=== PATIENT | female | born 1990 | race Caucasian/White ===

== ENCOUNTER 2017-02-17 16:07 | Inpatient (IN) | payer OTHER ==
[2017-02-17] MEDS ORDERED: Nalbuphine 20 MG/1 ML Amp IVPUSH PRN (16:50)
[2017-02-17] MEDS ORDERED: Acetaminophen 325 MG Tab PO PRN ×2 (16:50→23:25)
[2017-02-17] MEDS ORDERED: Sodium Chloride 0.9% 10 ML Syringe FLUSH PRN (16:50)
[2017-02-17] MEDS ORDERED: Ondansetron 4 MG/2 ML SDV IVPUSH PRN (16:50)
[2017-02-17] MEDS ORDERED: Lactated Ringers 1,000 ML IV SCH (17:00)
[2017-02-17] MEDS ORDERED: Oxytocin/Lactated Ringers 10 UNIT/1,000 ML BAG IV SCH ×2 (17:00→22:23)
--- NOTE | 2017-02-17 17:01 | PCM.LDHP ---
L&D History of Present Illness - General Date of Service: 02/17/17 Admit Problem/Dx: Patient Status Order with Admit Dx/Problem 02/17/17 16:50 Patient Status [ADT] Routine Admission Diagnosis/Problem Admission Diagnosis/Problem Normal labor Source of Information: Patient History Limitations: Reports: No Limitations - History of Present Illness Introduction:: Patient is a 26 y/o at 39 4/7 wks presents in labor. Was seen in clinic earlier today and was 5-6 cm dilated. At that time contractions every 10 minutes or so. Now feeling them every 3-5. Otherwise doing well. No other concerns. - Related Data Allergies/Adverse Reactions: Allergies Allergy/AdvReac Type Severity Reaction Status Date / Time No Known Allergies Allergy Verified 04/25/14 16:27 Home Medications: Home Meds Ferrous Sulfate [Slow Fe] 1 tab PO DAILY 04/25/14 [History] Pnv with Ca,No.71/Iron/Fa [ Vitamin Tablet] 1 each PO 04/25/14 [History] Acetaminophen/oxyCODONE [Percocet 325-5 MG] 1 - 2 tab PO Q4H PRN #20 tablet [Rx] Ibuprofen [Motrin] 600 mg PO Q6H PRN #20 tablet 04/28/14 [Rx] Past Medical History GRE T[employer]OR History: Reports: : 2 Para: 1 LMP (Approximate): Psychiatric History: Reports: Depression - Past Surgical History HEENT Surgical History: Reports: Adenoidectomy, Tonsillectomy Female Surgical History: Reports: Section Social & Family History - Tobacco Use Smoking Status *Q: Never Smoker Second Hand Smoke Exposure: No - Alcohol Use Alcohol Use History: No - Recreational Drug Use Recreational Drug Use: No H&P Review of Systems - Review of Systems: Review Of Systems: See Below General: Reports: No Symptoms Pulmonary: Reports: No Symptoms Cardiovascular: Reports: No Symptoms Gastrointestinal: Reports: No Symptoms Genitourinary: Reports: No Symptoms Musculoskeletal: Reports: No Symptoms Psychiatric: Reports: No Symptoms L&D Exam - Exam Exam: See Below - Vital Signs Weight: 100.698 kg - OB Specific Contraction Intensity: Moderate Movement: Active Heart Tones: Present Heart Tones per Min: 130 Heart Rate (FHR) Variability: Moderate (6-25 bmp) Presentation: Vertex - Rodríguez Score Rodríguez Score Cervix Position: Midposition Rodríguez Score Consistency: Soft Rodríguez Score Effacement: >80% Rodríguez Score Dilation: > 5 cm Rodríguez Score 's Station: -1 ,0 Rodríguez Score Total: 11 - Exam General: Alert, Oriented, Cooperative Lungs: Clear to Auscultation, Normal Respiratory Effort Cardiovascular: Regular Rate, Regular Rhythm Abdomen: Soft Genitourinary: Normal external exam Extremities: Normal Inspection Skin: Warm, Dry, Intact - Problem List (1) 39 weeks gestation of SNOMED Code(s): 53215562 ICD Code: Z3A.39 - 39 WEEKS GESTATION OF Status: Acute Current Visit: Yes (2) History of SNOMED Code(s): 249989085 ICD Code: Z98.891 - HISTORY OF UTERINE SCAR FROM PREVIOUS SURGERY Status: Acute Current Visit: Yes (3) Desires (vaginal after ) trial SNOMED Code(s): 851456401, 602932764 ICD Code: O34.219 - MATERNAL CARE FOR UNSP TYPE SCAR FROM PREVIOUS DEL Status: Acute Current Visit: Yes (4) Normal labor SNOMED Code(s): 29916999 ICD Code: O80 - ENCOUNTER FOR FULL-TERM UNCOMPLICATED DELIVERY; Z37.9 - OUTCOME OF DELIVERY, UNSPECIFIED Status: Acute Current Visit: Yes Problem List Initiated/Reviewed/Updated: Yes Orders Last 24hrs: Active Orders 24 hr Category Date Time Status Patient Status [ADT] Routine ADT 02/17/17 16:50 Active Activity as Tolerated [RC] PFP Care 02/17/17 16:50 Active Communication Order [RC] ASDIRECTED Care 02/17/17 16:50 Active Heart Tones [RC] ASDIRECTED Care 02/17/17 16:51 Active Notify Provider [RC] PFP Care 02/17/17 16:50 Active Notify Provider [RC] PRN Care 02/17/17 16:50 Active Peripheral IV Care [RC] . DIRECTED Care 02/17/17 16:51 Active Vital Signs [RC] PER UNIT ROUTINE Care 02/17/17 16:50 Active CBC W/O DIFF,HEMOGRAM [HEME] Routine Lab 02/17/17 16:50 Ordered TYPE AND SCREEN [BBK] Routine Lab 02/17/17 16:50 Ordered Acetaminophen [Tylenol] Med 02/17/17 16:50 Ordered 650 mg PO Q4H PRN Lactated Ringers [Ringers, Lactated] 1,000 ml Med 02/17/17 17:00 Ordered IV ASDIRECTED Nalbuphine [Nubain] Med 02/17/17 16:50 Ordered 10 mg IVPUSH Q2H PRN Ondansetron [Zofran] Med 02/17/17 16:50 Ordered 4 mg IVPUSH Q4H PRN Oxytocin/Lactated Ringers [Pitocin in LR 10 Units/1,000 Med 02/17/17 17:00 Ordered ML] 10 unit in 1,000 ml IV TITRATE Sodium Chloride 0.9% [Saline Flush] Med 02/17/17 16:50 Ordered 10 ml FLUSH ASDIRECTED PRN Electronic Heart Tones Ext w TOCO [WOMSER] Oth 02/17/17 16:50 Ordered Routine Electronic Heart Tones Internal [WOMSER] Per Unit Oth 02/17/17 16:50 Ordered Routine Peripheral IV Insertion Adult [OM.PC] Routine Oth 02/17/17 16:50 Ordered Resuscitation Status Routine Resus Stat 02/17/17 16:50 Ordered Medication Orders Acetaminophen (Tylenol) 650 mg PO Q4H PRN PRN Reason: Pain (Mild 1-3) and fever Lactated Ringer's (Ringers, Lactated) 1,000 mls @ 40 mls/hr IV ASDIRECTED [facility] Oxytocin/Lactated Ringer's (Pitocin In Lr 10 Units/1,000 Ml) 10 unit in 1,000 mls @ 500 mls/hr IV TITRATE [facility] PRN Reason: Protocol Nalbuphine HCl (Nubain) 10 mg IVPUSH Q2H PRN PRN Reason: Pain (moderate 4-6) Ondansetron HCl (Zofran) 4 mg IVPUSH Q4H PRN PRN Reason: Nausea/Vomiting Sodium Chloride (Saline Flush) 10 ml FLUSH ASDIRECTED PRN PRN Reason: Keep Vein Open Assessment/Plan Comment:: 26 y/o at 39 4/7 wks presents in labor - history of for NRFS/ desires * CBC and T&S * GBS negative, no need for antibiotics * Re-reviewed risks of , consent signed * Pain management per patient preference * Anticipate Cece Amin MD
--- NOTE | 2017-02-17 19:00 | PCM.PNLD ---
Labor Progress Note - VS & Meds Vital Signs: Last Vital Signs Temp 37.3 C 02/17/17 16:50 Pulse 93 02/17/17 16:50 Resp 18 02/17/17 16:50 BP 116/80 02/17/17 16:50 Pulse Ox Active Medications: Current Medications Acetaminophen (Tylenol) 650 mg PO Q4H PRN PRN Reason: Pain (Mild 1-3) and fever Lactated Ringer's (Ringers, Lactated) 1,000 mls @ 40 mls/hr IV ASDIRECTED [facility] Oxytocin/Lactated Ringer's (Pitocin In Lr 10 Units/1,000 Ml) 10 unit in 1,000 mls @ 500 mls/hr IV TITRATE [facility] PRN Reason: Protocol Nalbuphine HCl (Nubain) 10 mg IVPUSH Q2H PRN PRN Reason: Pain (moderate 4-6) Ondansetron HCl (Zofran) 4 mg IVPUSH Q4H PRN PRN Reason: Nausea/Vomiting Sodium Chloride (Saline Flush) 10 ml FLUSH ASDIRECTED PRN PRN Reason: Keep Vein Open - Uterine Contractions Uterine Monitoring Mode: External [place] Contraction Intensity: Moderate - Monitoring Monitor Mode: External Ultrasound Heart Rate (FHR) Baseline: 130 Heart Rate (FHR) Variability: Moderate (6-25 bmp) Accelerations: Present, 15x15 Decelerations: None Strip Review: Category I - Vaginal Exam Dilation (cm): 7 Effacement (Percent): 90 Station: 1 Cervical Position: Anterior - Labor Progress (Free Text) Labor Progress: Doing well. Desires epidural. Will likely AROM following
[2017-02-17] MEDS ORDERED: diphenhydrAMINE 50 MG/ML SDV IVPUSH PRN (19:13)
[2017-02-17] MEDS ORDERED: ePHEDrine 50 MG/ML SDV IVPUSH PRN (19:13)
[2017-02-17] MEDS ORDERED: fentaNYL 100 MCG/2 ML SDV EPIDUR PRN (19:13)
[2017-02-17] MEDS ORDERED: Bupivacaine/fentaNYL/NS 100 ML Bag EPIDUR SCH (19:15)
--- NOTE | 2017-02-17 19:48 | PCM.PREANE ---
Preanesthetic Assessment - Anesthesia/Transfusion/Family Hx Anesthesia History: Prior Anesthesia Without Reaction Family History of Anesthesia Reaction: No Transfusion History: No Prior Transfusion(s) - Review of Systems General: No Symptoms Pulmonary: No Symptoms Cardiovascular: No Symptoms Gastrointestinal: No symptoms Neurological: No Symptoms Other: Reports: None - Physical Assessment Pulse: 93 O2 Sat by Pulse Oximetry: 97 Respiratory Rate: 18 Blood Pressure: 116/80 Temperature: 37.3 C Vital Signs: Last Vital Signs Temp 37.3 C 02/17/17 16:50 Pulse 93 02/17/17 16:50 Resp 18 02/17/17 16:50 BP 116/80 02/17/17 16:50 Pulse Ox Height: 1.8 m Weight: 100.698 kg ASA Class: 2 Mental Status: Alert & Oriented x3 Airway Class: Mallampati = 1 Dentition: Reports: Normal Dentition ROM/Head Extension: Full Lungs: Clear to auscultation, Normal respiratory effort Cardiovascular: Regular Rate, Regular Rhythm, No Murmurs - Lab Values: Laboratory Last Values WBC 12.91 K/mm3 (3.98-10.04) H 02/17/17 17:05 RBC 4.16 M/mm3 (3.98-5.22) 02/17/17 17:05 Hgb 11.3 gm/L (11.2-15.7) 02/17/17 17:05 Hct 33.3 % (34.1-44.9) L 02/17/17 17:05 MCV 80.0 fl (79.4-94.8) 02/17/17 17:05 MCH 27.2 pg (25.6-32.2) 02/17/17 17:05 MCHC 33.9 g/dl (32.2-35.5) 02/17/17 17:05 RDW Std Deviation 42.9 fL (36.4-46.3) 02/17/17 17:05 Plt Count 341 K/mm3 (182-369) 02/17/17 17:05 MPV 9.8 fl (9.4-12.3) 02/17/17 17:05 Blood Type A POSITIVE 02/17/17 17:05 Gel Antibody Screen Negative 02/17/17 17:05 - Allergies Allergies/Adverse Reactions: Allergies Allergy/AdvReac Type Severity Reaction Status Date / Time Penicillins Allergy Rash Verified 02/17/17 17:26 - Acknowledgements Anesthesia Type Planned: Epidural Pt an Appropriate Candidate for the Planned Anesthesia: Yes Alternatives and Risks of Anesthesia Discussed w Pt/Guardian: Yes Pt/Guardian Understands and Agrees with Anesthesia Plan: Yes PreAnesthesia Questionnaire 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: Neurological History: Reports: Migraines Psychiatric History: Reports: Depression - Past Surgical History HEENT Surgical History: Reports: Adenoidectomy, Tonsillectomy Female Surgical History: Reports: Section - SUBSTANCE USE Smoking Status *Q: Never Smoker Second Hand Smoke Exposure: No Recreational Drug Use History: No - HOME MEDS Home Medications: Home Meds Pnv with Ca,No.71/Iron/Fa [ Vitamin Tablet] 1 each PO DAILY 04/25/14 [ History] - CURRENT (IN HOUSE) MEDS Current Meds: Current Medications Acetaminophen (Tylenol) 650 mg PO Q4H PRN PRN Reason: Pain (Mild 1-3) and fever Diphenhydramine HCl (Benadryl) 25 mg IVPUSH Q6H PRN PRN Reason: Itching Ephedrine Sulfate (Ephedrine Sulfate) 5 mg IVPUSH ASDIRECTED PRN PRN Reason: HYPOTENTSION Fentanyl (Sublimaze) 100 mcg EPIDUR Q3H PRN PRN Reason: PAIN Last Admin: 02/17/17 19:39 Dose: 100 mcg Fentanyl/Bupivacaine HCl (Fentanyl/Bupivacaine/Ns 2 Mcg-0.125% 100 Ml) 100 ml EPIDUR ASDIRECTED [facility] Last Admin: 02/17/17 19:40 Dose: 100 ml Lactated Ringer's (Ringers, Lactated) 1,000 mls @ 40 mls/hr IV ASDIRECTED [facility] Last Admin: 02/17/17 19:02 Dose: 999 mls/hr Oxytocin/Lactated Ringer's (Pitocin In Lr 10 Units/1,000 Ml) 10 unit in 1,000 mls @ 500 mls/hr IV TITRATE [facility] PRN Reason: Protocol Nalbuphine HCl (Nubain) 10 mg IVPUSH Q2H PRN PRN Reason: Pain (moderate 4-6) Ondansetron HCl (Zofran) 4 mg IVPUSH Q4H PRN PRN Reason: Nausea/Vomiting Sodium Chloride (Saline Flush) 10 ml FLUSH ASDIRECTED PRN PRN Reason: Keep Vein Open
--- NOTE | 2017-02-17 19:52 | PCM.PNLD ---
Labor Progress Note - VS & Meds Vital Signs: Last Vital Signs Temp 37.3 C 02/17/17 19:48 Pulse 93 02/17/17 19:48 Resp 18 02/17/17 19:48 BP 116/80 02/17/17 19:48 Pulse Ox 97 02/17/17 19:48 Active Medications: Current Medications Acetaminophen (Tylenol) 650 mg PO Q4H PRN PRN Reason: Pain (Mild 1-3) and fever Diphenhydramine HCl (Benadryl) 25 mg IVPUSH Q6H PRN PRN Reason: Itching Ephedrine Sulfate (Ephedrine Sulfate) 5 mg IVPUSH ASDIRECTED PRN PRN Reason: HYPOTENTSION Fentanyl (Sublimaze) 100 mcg EPIDUR Q3H PRN PRN Reason: PAIN Last Admin: 02/17/17 19:39 Dose: 100 mcg Fentanyl/Bupivacaine HCl (Fentanyl/Bupivacaine/Ns 2 Mcg-0.125% 100 Ml) 100 ml EPIDUR ASDIRECTED [facility] Last Admin: 02/17/17 19:40 Dose: 100 ml Lactated Ringer's (Ringers, Lactated) 1,000 mls @ 40 mls/hr IV ASDIRECTED [facility] Last Admin: 02/17/17 19:02 Dose: 999 mls/hr Oxytocin/Lactated Ringer's (Pitocin In Lr 10 Units/1,000 Ml) 10 unit in 1,000 mls @ 500 mls/hr IV TITRATE [facility] PRN Reason: Protocol Nalbuphine HCl (Nubain) 10 mg IVPUSH Q2H PRN PRN Reason: Pain (moderate 4-6) Ondansetron HCl (Zofran) 4 mg IVPUSH Q4H PRN PRN Reason: Nausea/Vomiting Sodium Chloride (Saline Flush) 10 ml FLUSH ASDIRECTED PRN PRN Reason: Keep Vein Open - Uterine Contractions Uterine Monitoring Mode: External [place] Contraction Intensity: Moderate - Monitoring Monitor Mode: External Ultrasound Heart Rate (FHR) Baseline: 130 Heart Rate (FHR) Variability: Moderate (6-25 bmp) Accelerations: Present, 15x15 Decelerations: None Strip Review: Category I - Vaginal Exam Dilation (cm): 8-9 Effacement (Percent): 90 Station: 1 Cervical Position: Anterior - Labor Progress (Free Text) Labor Progress: Doing well. Just got her epidural. AROM done with release of scant amounts of blood tinged fluid. Continue present management
[2017-02-17] MEDS ORDERED: Bupivacaine 0.25% 10 ML SDV ONE (22:22)
--- NOTE | 2017-02-17 22:48 | PCM.DEL ---
L & D Note - General Info Date of Service: 02/17/17 - Delivery Note Labor: spontaneous Delivery Outcome: Livebirth Delivery Method: Spontaneous Vaginal Delivery Presentation: Right Occiput Anterior (JEWELL) Nuchal Cord: Present, Reduced Anesthesia Type: Epidural Amniotic Fluid Description: Meconium stained Episiotomy Type: None Laceration: 2nd degree, perineal Suture type: vicryl Suture size: 2-0 Placenta: intact, spontaneous Cord: 3 vessels Estimated Blood Loss: 250 Resuscitation Needed: Yes [place]: Suctioned, Bulb Syringe, Stimulated, Warmed, [place] Used Provider: Michael Rose Score 1 min: 8 Score 5 min: 9 Delivery Comments (Free Text/Narrative):: Patient found to be complete and began pushing. With maternal pushing effort head delivered from an JEWELL presentation. With gentle downward traction the shoulder and body delivered. Nuchal and body cord present and reduced. Cord clamped and cut. Baby handed to awaiting production hardener due to meconium staining. Cord blood obtained. Placenta allowed time to separate and spontaneously expelled. Inspection of the perineum showed a 2nd degree laceration which was repaired with a 2-0 vicryl in the typical fashion - Patient Data Vitals - most recent: Last Vital Signs Temp 37.3 C 02/17/17 19:48 Pulse 93 02/17/17 19:48 Resp 18 02/17/17 19:48 BP 116/80 02/17/17 19:48 Pulse Ox 97 02/17/17 19:48 Weight - most recent: 100.698 kg Lab Results last 24 hrs: Laboratory Results - last 24 hr 02/17/17 02/17/17 Range/Units 17:05 17:05 WBC 12.91 H (3.98-10.04) K/mm3 RBC 4.16 (3.98-5.22) M/mm3 Hgb 11.3 (11.2-15.7) gm/L Hct 33.3 L (34.1-44.9) % MCV 80.0 (79.4-94.8) fl MCH 27.2 (25.6-32.2) pg MCHC 33.9 (32.2-35.5) g/dl RDW Std Deviation 42.9 (36.4-46.3) fL Plt Count 341 (182-369) K/mm3 MPV 9.8 (9.4-12.3) fl Blood Type A POSITIVE Gel Antibody Screen Negative Med Orders - Current: Current Medications Acetaminophen (Tylenol) 650 mg PO Q4H PRN PRN Reason: Pain (Mild 1-3) and fever Diphenhydramine HCl (Benadryl) 25 mg IVPUSH Q6H PRN PRN Reason: Itching Ephedrine Sulfate (Ephedrine Sulfate) 5 mg IVPUSH ASDIRECTED PRN PRN Reason: HYPOTENTSION Fentanyl (Sublimaze) 100 mcg EPIDUR Q3H PRN PRN Reason: PAIN Last Admin: 02/17/17 19:39 Dose: 100 mcg Fentanyl/Bupivacaine HCl (Fentanyl/Bupivacaine/Ns 2 Mcg-0.125% 100 Ml) 100 ml EPIDUR ASDIRECTED [facility] Last Admin: 02/17/17 19:40 Dose: 100 ml Lactated Ringer's (Ringers, Lactated) 1,000 mls @ 40 mls/hr IV ASDIRECTED [facility] Last Admin: 02/17/17 19:02 Dose: 999 mls/hr Oxytocin/Lactated Ringer's (Pitocin In Lr 10 Units/1,000 Ml) 10 unit in 1,000 mls @ 500 mls/hr IV TITRATE [facility] PRN Reason: Protocol Nalbuphine HCl (Nubain) 10 mg IVPUSH Q2H PRN PRN Reason: Pain (moderate 4-6) Ondansetron HCl (Zofran) 4 mg IVPUSH Q4H PRN PRN Reason: Nausea/Vomiting Last Admin: 02/17/17 20:18 Dose: 4 mg Sodium Chloride (Saline Flush) 10 ml FLUSH ASDIRECTED PRN PRN Reason: Keep Vein Open - Problem List & Annotations (1) 39 weeks gestation of SNOMED Code(s): 76302483 Code(s): Z3A.39 - 39 WEEKS GESTATION OF Status: Acute Current Visit: Yes (2) History of SNOMED Code(s): 474504928 Code(s): Z98.891 - HISTORY OF UTERINE SCAR FROM PREVIOUS SURGERY Status: Acute Current Visit: Yes (3) Desires (vaginal after ) trial SNOMED Code(s): 242541609, 728658820 Code(s): O34.219 - MATERNAL CARE FOR UNSP TYPE SCAR FROM PREVIOUS DEL Status: Acute Current Visit: Yes (4) Normal labor SNOMED Code(s): 97842813 Code(s): O80 - ENCOUNTER FOR FULL-TERM UNCOMPLICATED DELIVERY; Z37.9 - OUTCOME OF DELIVERY, UNSPECIFIED Status: Acute Current Visit: Yes (5) , delivered, current hospitalization SNOMED Code(s): 518221681 Code(s): O34.219 - MATERNAL CARE FOR UNSP TYPE SCAR FROM PREVIOUS DEL Status: Acute Current Visit: Yes - Problem List Review Problem List Initiated/Reviewed/Updated: Yes - My Orders Last 24 Hours: My Active Orders 02/17/17 16:50 Patient Status [ADT] Routine Activity as Tolerated [RC] PFP Communication Order [RC] ASDIRECTED Notify Provider [RC] PFP Notify Provider [RC] PRN Vital Signs [RC] PER UNIT ROUTINE Acetaminophen [Tylenol] 650 mg PO Q4H PRN Nalbuphine [Nubain] 10 mg IVPUSH Q2H PRN Ondansetron [Zofran] 4 mg IVPUSH Q4H PRN Sodium Chloride 0.9% [Saline Flush] 10 ml FLUSH ASDIRECTED PRN Electronic Heart Tones Ext w TOCO [WOMSER] Routine Electronic Heart Tones Internal [WOMSER] Per Unit Routine Peripheral IV Insertion Adult [OM.PC] Routine Resuscitation Status Routine 02/17/17 16:51 Heart Tones [RC] ASDIRECTED Peripheral IV Care [RC] . DIRECTED 02/17/17 17:00 Lactated Ringers [Ringers, Lactated] 1,000 ml IV ASDIRECTED Oxytocin/Lactated Ringers [Pitocin in LR 10 Units/1,000 ML] 10 unit in 1,000 ml IV TITRATE 02/17/17 22:39 Patient Status Manage Transfer [TRANSFER] Routine - Assessment Assessment:: 26 y/o G2 now P2002 PPD#0 from at 39 4/7 wks - Plan Plan:: * Routine cares * Encourage breast feeding * Discharge home in 1-2 days Cece Amin MD
[2017-02-17] MEDS ORDERED: Lanolin 100% Cream 7 GM Tube TOP PRN (23:25)
[2017-02-17] MEDS ORDERED: Benzocaine/Menthol 20%-0.5% Spray 56 GM Canister TOP PRN (23:25)
[2017-02-17] MEDS ORDERED: Docusate Sodium 100 MG Cap PO PRN (23:25)
[2017-02-17] MEDS ORDERED: Witch Hazel Medicated Pads 100/Jar TOP PRN (23:25)
[2017-02-18] MEDS: Ibuprofen 600 MG Tab PO PRN ×3 (01:31→18:14)
--- NOTE | 2017-02-18 07:03 | PCM.PNPP ---
- General Info Date of Service: 02/18/17 Functional Status: Reports: pain controlled, tolerating diet, ambulating, urinating - Review of Systems General: Reports: No Symptoms Pulmonary: Reports: no symptoms Cardiovascular: Reports: No Symptoms Gastrointestinal: Reports: No symptoms Genitourinary: Reports: other (some perineal pain) Musculoskeletal: Reports: no symptoms - Patient Data Vital Signs - most recent: Last Vital Signs Temp 37.3 C 02/18/17 04:06 Pulse 65 02/18/17 04:06 Resp 13 02/18/17 04:06 BP 94/53 L 02/18/17 04:06 Pulse Ox 99 02/18/17 04:06 Weight - most recent: 100.698 kg I&O - last 24 hours: Intake & Output 02/17/17 02/18/17 02/18/17 22:59 06:59 14:59 Intake Total 1999 Balance 1999 Lab Results - last 24 hrs: Laboratory Results - last 24 hr 02/17/17 02/17/17 Range/Units 17:05 17:05 WBC 12.91 H (3.98-10.04) K/mm3 RBC 4.16 (3.98-5.22) M/mm3 Hgb 11.3 (11.2-15.7) gm/L Hct 33.3 L (34.1-44.9) % MCV 80.0 (79.4-94.8) fl MCH 27.2 (25.6-32.2) pg MCHC 33.9 (32.2-35.5) g/dl RDW Std Deviation 42.9 (36.4-46.3) fL Plt Count 341 (182-369) K/mm3 MPV 9.8 (9.4-12.3) fl Blood Type A POSITIVE Gel Antibody Screen Negative Med Orders - Current: Current Medications Acetaminophen (Tylenol) 650 mg PO Q4H PRN PRN Reason: mild pain or fever Benzocaine/Menthol (Dermoplast Pain Relief [place]) 0 gm TOP ASDIRECTED PRN PRN Reason: Perineal Comfort Measure Last Admin: 02/18/17 01:31 Dose: 1 case Docusate Sodium (Colace) 100 mg PO BID PRN PRN Reason: Constipation Emollient Ointment (Lansinoh Hpa) 0 gm TOP ASDIRECTED PRN PRN Reason: Sore Nipples Last Admin: 02/18/17 01:32 Dose: 1 tube Oxytocin/Lactated Ringer's (Pitocin In Lr 10 Units/1,000 Ml) 10 unit in 1,000 mls @ 500 mls/hr IV TITRATE [facility] PRN Reason: Protocol Last Admin: 02/17/17 22:25 Dose: 500 mls/hr, 500 mls/hr Ibuprofen (Motrin) 600 mg PO Q6H PRN PRN Reason: Mild pain or fever Last Admin: 02/18/17 01:31 Dose: 600 mg Witch Amira (Tucks) 1 pad TOP ASDIRECTED PRN PRN Reason: Hemorrhoid pain Last Admin: 02/18/17 01:32 Dose: 1 cartridge Discontinued Medications Acetaminophen (Tylenol) 650 mg PO Q4H PRN PRN Reason: Pain (Mild 1-3) and fever Diphenhydramine HCl (Benadryl) 25 mg IVPUSH Q6H PRN PRN Reason: Itching Ephedrine Sulfate (Ephedrine Sulfate) 5 mg IVPUSH ASDIRECTED PRN PRN Reason: HYPOTENTSION Fentanyl (Sublimaze) 100 mcg EPIDUR Q3H PRN PRN Reason: PAIN Last Admin: 02/17/17 19:39 Dose: 100 mcg Fentanyl/Bupivacaine HCl (Fentanyl/Bupivacaine/Ns 2 Mcg-0.125% 100 Ml) 100 ml EPIDUR ASDIRECTED [facility] Last Admin: 02/17/17 19:40 Dose: 100 ml Lactated Ringer's (Ringers, Lactated) 1,000 mls @ 40 mls/hr IV ASDIRECTED [facility] Last Admin: 02/17/17 19:02 Dose: 999 mls/hr Oxytocin/Lactated Ringer's (Pitocin In Lr 10 Units/1,000 Ml) 10 unit in 1,000 mls @ 500 mls/hr IV TITRATE [facility] PRN Reason: Protocol Nalbuphine HCl (Nubain) 10 mg IVPUSH Q2H PRN PRN Reason: Pain (moderate 4-6) Ondansetron HCl (Zofran) 4 mg IVPUSH Q4H PRN PRN Reason: Nausea/Vomiting Last Admin: 02/17/17 20:18 Dose: 4 mg Sodium Chloride (Saline Flush) 10 ml FLUSH ASDIRECTED PRN PRN Reason: Keep Vein Open - Infant Interaction Disposition, : in Room with Family Feeding: Attempted ; Nursed Fair/Poor Support Person: - Recovery Exam Fundal Tone: Firm Fundal Level: 2 Fingerbreadths Below Umbilicus Fundal Placement: Midline Lochia Amount: Scant, Small Lochia Color: Rubra/Red Perineum Description: Edematous Episiotomy/Laceration: Approximated Urinary Elimination: Voided - Exam General: alert, oriented, cooperative Abdomen: soft, no tenderness Extremities: edema Skin: warm, dry, intact - Problem List & Annotations (1) 39 weeks gestation of SNOMED Code(s): 47372461 Code(s): Z3A.39 - 39 WEEKS GESTATION OF Status: Acute Current Visit: Yes (2) History of SNOMED Code(s): 965129213 Code(s): Z98.891 - HISTORY OF UTERINE SCAR FROM PREVIOUS SURGERY Status: Acute Current Visit: Yes (3) Desires (vaginal after ) trial SNOMED Code(s): 460581398, 700080021 Code(s): O34.219 - MATERNAL CARE FOR UNSP TYPE SCAR FROM PREVIOUS DEL Status: Acute Current Visit: Yes (4) Normal labor SNOMED Code(s): 11206617 Code(s): O80 - ENCOUNTER FOR FULL-TERM UNCOMPLICATED DELIVERY; Z37.9 - OUTCOME OF DELIVERY, UNSPECIFIED Status: Acute Current Visit: Yes (5) , delivered, current hospitalization SNOMED Code(s): 519461347 Code(s): O34.219 - MATERNAL CARE FOR UNSP TYPE SCAR FROM PREVIOUS DEL Status: Acute Current Visit: Yes - Problem List Review Problem List Initiated/Reviewed/Updated: Yes - My Orders Last 24 Hours: My Active Orders 02/17/17 16:50 Resuscitation Status Routine 02/17/17 16:51 Heart Tones [RC] ASDIRECTED 02/17/17 22:23 Oxytocin/Lactated Ringers [Pitocin in LR 10 Units/1,000 ML] 10 unit in 1,000 ml IV TITRATE 02/17/17 23:25 Activity as Tolerated [RC] PER UNIT ROUTINE Vital Signs [RC] 04,12,20 Acetaminophen [Tylenol] 650 mg PO Q4H PRN Benzocaine/Menthol [Dermoplast Pain Relief [place]] See Dose Instructions TOP ASDIRECTED PRN Docusate Sodium [Colace] 100 mg PO BID PRN Ibuprofen [Motrin] 600 mg PO Q6H PRN Lanolin [Lansinoh HPA] See Dose Instructions TOP ASDIRECTED PRN Witch Amira [Tucks] 1 pad TOP ASDIRECTED PRN Assess Lochia [WOMSER] Per Unit Routine Assess Uterine Involution [WOMSER] Per Unit Routine Breast Pump [WOMSER] Per Unit Routine Heat Therapy [OM.PC] PRN Ice Therapy [OM.PC] Per Unit Routine Perineal Care [OM.PC] Per Unit Routine Peripheral IV Discontinue [OM.PC] Routine Sitz Bath [OM.PC] Per Unit Routine 02/17/17 Dinner Regular Diet [DIET] 02/18/17 23:25 Heat Therapy [OM.PC] PRN - Assessment Assessment:: 26 y/o G2 now P2002 PPD#1 from at 39 4/7 wks - Plan Plan:: * Routine cares * Encourage breast feeding * Discharge home tomorrow Cece Amin MD
--- NOTE | 2017-02-18 08:37 | PCM48HPAN ---
Post Anesthesia Note - EVALUATION WITHIN 48HRS OF ANESTHETIC Vital Signs in Normal Range: Yes Patient Participated in Evaluation: Yes Respiratory Function Stable: Yes Airway Patent: Yes Cardiovascular Function Stable: Yes Hydration Status Stable: Yes Pain Control Satisfactory: Yes Nausea and Vomiting Control Satisfactory: Yes Mental Status Recovered: Yes - COMMENTS/OBSERVATIONS Free Text/Narrative:: Pt reports she and baby doing very well. Pt reports return of full LE strength, has a bit of numbnessin skin of left hip, otherwise completely resolved. I counseled her that this too will likely return over the next few days, but that occasionally there might be an area of persistent numbness. Pt stated, "I'm not bothered by it." up to restroom without difficulty, no fever, chills, nausea, or vomiting. no soreness at site.
[2017-02-19 04:07] VITALS: BP 106/62
--- NOTE | 2017-02-19 07:05 | PCM.DCSUM1 ---
Discharge Summary - Discharge Data Discharge Date: 02/19/17 Discharge Disposition: Home, Self-Care 01 Condition: Good - Discharge Diagnosis/Problem(s) (1) 39 weeks gestation of SNOMED Code(s): 46033369 ICD Code: Z3A.39 - 39 WEEKS GESTATION OF Status: Acute Current Visit: Yes (2) History of SNOMED Code(s): 936270429 ICD Code: Z98.891 - HISTORY OF UTERINE SCAR FROM PREVIOUS SURGERY Status: Acute Current Visit: Yes (3) Desires (vaginal after ) trial SNOMED Code(s): 113500481, 235385165 ICD Code: O34.219 - MATERNAL CARE FOR UNSP TYPE SCAR FROM PREVIOUS DEL Status: Acute Current Visit: Yes (4) Normal labor SNOMED Code(s): 98616154 ICD Code: O80 - ENCOUNTER FOR FULL-TERM UNCOMPLICATED DELIVERY; Z37.9 - OUTCOME OF DELIVERY, UNSPECIFIED Status: Acute Current Visit: Yes (5) , delivered, current hospitalization SNOMED Code(s): 711834640 ICD Code: O34.219 - MATERNAL CARE FOR UNSP TYPE SCAR FROM PREVIOUS DEL Status: Acute Current Visit: Yes - Patient Summary/Data Complications: None Recommended Follow-up Testing/Procedures: Follow up in 5-6 weeks for check Hospital Course: Patient is a 26 y/o at 39 4/7 wks who presented in labor/desire for . She did well without the need for augmentation and underwent an uncomplicated . See delivery note. she did well and was discharged home on PPD#2 - Patient Instructions Diet: Regular Diet as Tolerated Activity: As Tolerated Activity, Other: Pelvic rest for 6 weeks Driving: May Drive Today Showering/Bathing: May Shower Showering/Bathing, Other: May bathe Notify Provider of: Fever, Increased Pain, Swelling and Redness, Drainage, Nausea and/or Vomiting - Discharge Plan Home Medications: Home Meds Pnv with Ca,No.71/Iron/Fa [ Vitamin Tablet] 1 each PO DAILY 04/25/14 [ History] Docusate Sodium [Colace] 100 mg PO BID PRN #0 cap 02/18/17 [Rx] Ibuprofen [IJD: Ibuprofen] 600 mg PO Q6H PRN #0 tablet 02/18/17 [Rx] Referrals: Cece Amin MD [Physician] - (5-6 weeks for exam) - Discharge Summary/Plan Comment DC Time >30 min.: No - Patient Data Vitals - Most Recent: Last Vital Signs Temp 36.6 C 02/19/17 03:48 Pulse 51 L 02/19/17 03:48 Resp 12 02/19/17 04:00 BP 106/62 02/19/17 03:48 Pulse Ox 99 02/19/17 03:48 Weight - Most Recent: 100.698 kg I&O - Last 24 hours: Intake & Output 02/18/17 02/19/17 02/19/17 22:59 06:59 14:59 Intake Total 90 Balance 90 Med Orders - Current: Current Medications Acetaminophen (Tylenol) 650 mg PO Q4H PRN PRN Reason: mild pain or fever Benzocaine/Menthol (Dermoplast Pain Relief [facility]) 0 gm TOP ASDIRECTED PRN PRN Reason: Perineal Comfort Measure Last Admin: 02/18/17 01:31 Dose: 1 case Docusate Sodium (Colace) 100 mg PO BID PRN PRN Reason: Constipation Emollient Ointment (Lansinoh Hpa) 0 gm TOP ASDIRECTED PRN PRN Reason: Sore Nipples Last Admin: 02/18/17 01:32 Dose: 1 tube Oxytocin/Lactated Ringer's (Pitocin In Lr 10 Units/1,000 Ml) 10 unit in 1,000 mls @ 500 mls/hr IV TITRATE MAGO PRN Reason: Protocol Last Admin: 02/17/17 22:25 Dose: 500 mls/hr, 500 mls/hr Ibuprofen (Motrin) 600 mg PO Q6H PRN PRN Reason: Mild pain or fever Last Admin: 02/18/17 18:14 Dose: 600 mg Witch Amira (Tucks) 1 pad TOP ASDIRECTED PRN PRN Reason: Hemorrhoid pain Last Admin: 02/18/17 01:32 Dose: 1 cartridge Discontinued Medications Acetaminophen (Tylenol) 650 mg PO Q4H PRN PRN Reason: Pain (Mild 1-3) and fever Diphenhydramine HCl (Benadryl) 25 mg IVPUSH Q6H PRN PRN Reason: Itching Ephedrine Sulfate (Ephedrine Sulfate) 5 mg IVPUSH ASDIRECTED PRN PRN Reason: HYPOTENTSION Fentanyl (Sublimaze) 100 mcg EPIDUR Q3H PRN PRN Reason: PAIN Last Admin: 02/17/17 19:39 Dose: 100 mcg Fentanyl/Bupivacaine HCl (Fentanyl/Bupivacaine/Ns 2 Mcg-0.125% 100 Ml) 100 ml EPIDUR ASDIRECTED PENDING SALE TO [facility] Last Admin: 02/17/17 19:40 Dose: 100 ml Lactated Ringer's (Ringers, Lactated) 1,000 mls @ 40 mls/hr IV ASDIRECTED PENDING SALE TO [facility] Last Admin: 02/17/17 19:02 Dose: 999 mls/hr Oxytocin/Lactated Ringer's (Pitocin In Lr 10 Units/1,000 Ml) 10 unit in 1,000 mls @ 500 mls/hr IV TITRATE PENDING SALE TO [facility] PRN Reason: Protocol Nalbuphine HCl (Nubain) 10 mg IVPUSH Q2H PRN PRN Reason: Pain (moderate 4-6) Ondansetron HCl (Zofran) 4 mg IVPUSH Q4H PRN PRN Reason: Nausea/Vomiting Last Admin: 02/17/17 20:18 Dose: 4 mg Sodium Chloride (Saline Flush) 10 ml FLUSH ASDIRECTED PRN PRN Reason: Keep Vein Open *Q Meaningful Use (DIS) - VTE *Q VTE Criteria *Q: - Stroke *Q Stroke Criteria *Q: - AMI *Q AMI Criteria *Q:
--- NOTE | 2017-02-19 07:05 | PCM.PNPP ---
- General Info Date of Service: 02/19/17 Functional Status: Reports: pain controlled, tolerating diet, ambulating, urinating - Review of Systems General: Reports: No Symptoms Pulmonary: Reports: no symptoms Cardiovascular: Reports: No Symptoms Gastrointestinal: Reports: No symptoms Genitourinary: Reports: no symptoms Musculoskeletal: Reports: no symptoms - Patient Data Vital Signs - most recent: Last Vital Signs Temp 36.6 C 02/19/17 03:48 Pulse 51 L 02/19/17 03:48 Resp 12 02/19/17 04:00 BP 106/62 02/19/17 03:48 Pulse Ox 99 02/19/17 03:48 Weight - most recent: 100.698 kg I&O - last 24 hours: Intake & Output 02/18/17 02/19/17 02/19/17 22:59 06:59 14:59 Intake Total 90 Balance 90 Med Orders - Current: Current Medications Acetaminophen (Tylenol) 650 mg PO Q4H PRN PRN Reason: mild pain or fever Benzocaine/Menthol (Dermoplast Pain Relief [place]) 0 gm TOP ASDIRECTED PRN PRN Reason: Perineal Comfort Measure Last Admin: 02/18/17 01:31 Dose: 1 case Docusate Sodium (Colace) 100 mg PO BID PRN PRN Reason: Constipation Emollient Ointment (Lansinoh Hpa) 0 gm TOP ASDIRECTED PRN PRN Reason: Sore Nipples Last Admin: 02/18/17 01:32 Dose: 1 tube Oxytocin/Lactated Ringer's (Pitocin In Lr 10 Units/1,000 Ml) 10 unit in 1,000 mls @ 500 mls/hr IV TITRATE MAGO PRN Reason: Protocol Last Admin: 02/17/17 22:25 Dose: 500 mls/hr, 500 mls/hr Ibuprofen (Motrin) 600 mg PO Q6H PRN PRN Reason: Mild pain or fever Last Admin: 02/18/17 18:14 Dose: 600 mg Witch Amira (Tucks) 1 pad TOP ASDIRECTED PRN PRN Reason: Hemorrhoid pain Last Admin: 02/18/17 01:32 Dose: 1 cartridge Discontinued Medications Acetaminophen (Tylenol) 650 mg PO Q4H PRN PRN Reason: Pain (Mild 1-3) and fever Diphenhydramine HCl (Benadryl) 25 mg IVPUSH Q6H PRN PRN Reason: Itching Ephedrine Sulfate (Ephedrine Sulfate) 5 mg IVPUSH ASDIRECTED PRN PRN Reason: HYPOTENTSION Fentanyl (Sublimaze) 100 mcg EPIDUR Q3H PRN PRN Reason: PAIN Last Admin: 02/17/17 19:39 Dose: 100 mcg Fentanyl/Bupivacaine HCl (Fentanyl/Bupivacaine/Ns 2 Mcg-0.125% 100 Ml) 100 ml EPIDUR ASDIRECTED MAGO Last Admin: 02/17/17 19:40 Dose: 100 ml Lactated Ringer's (Ringers, Lactated) 1,000 mls @ 40 mls/hr IV ASDIRECTED MAGO Last Admin: 02/17/17 19:02 Dose: 999 mls/hr Oxytocin/Lactated Ringer's (Pitocin In Lr 10 Units/1,000 Ml) 10 unit in 1,000 mls @ 500 mls/hr IV TITRATE MAGO PRN Reason: Protocol Nalbuphine HCl (Nubain) 10 mg IVPUSH Q2H PRN PRN Reason: Pain (moderate 4-6) Ondansetron HCl (Zofran) 4 mg IVPUSH Q4H PRN PRN Reason: Nausea/Vomiting Last Admin: 02/17/17 20:18 Dose: 4 mg Sodium Chloride (Saline Flush) 10 ml FLUSH ASDIRECTED PRN PRN Reason: Keep Vein Open - Interaction Disposition, : [place] in Room with Family Infant Interaction: Holding Infant Feeding: Breastfed Infant; Nursed Well Support Person: - Recovery Exam Fundal Tone: Firm Fundal Level: 1 Fingerbreadths Below Umbilicus Fundal Placement: Midline Lochia Amount: Small Lochia Color: Rubra/Red Perineum Description: Edematous Episiotomy/Laceration: Approximated Bladder Status: Voiding Urinary Elimination: Voided - Exam General: alert, oriented, cooperative Abdomen: soft, no tenderness Extremities: no edema Skin: warm, dry, intact - Problem List & Annotations (1) 39 weeks gestation of SNOMED Code(s): 12116317 Code(s): Z3A.39 - 39 WEEKS GESTATION OF Status: Acute Current Visit: Yes (2) History of SNOMED Code(s): 531662363 Code(s): Z98.891 - HISTORY OF UTERINE SCAR FROM PREVIOUS SURGERY Status: Acute Current Visit: Yes (3) Desires (vaginal after ) trial SNOMED Code(s): 693998865, 797223983 Code(s): O34.219 - MATERNAL CARE FOR UNSP TYPE SCAR FROM PREVIOUS DEL Status: Acute Current Visit: Yes (4) Normal labor SNOMED Code(s): 89831093 Code(s): O80 - ENCOUNTER FOR FULL-TERM UNCOMPLICATED DELIVERY; Z37.9 - OUTCOME OF DELIVERY, UNSPECIFIED Status: Acute Current Visit: Yes (5) , delivered, current hospitalization SNOMED Code(s): 851219272 Code(s): O34.219 - MATERNAL CARE FOR UNSP TYPE SCAR FROM PREVIOUS DEL Status: Acute Current Visit: Yes - Problem List Review Problem List Initiated/Reviewed/Updated: Yes - My Orders Last 24 Hours: My Active Orders 02/18/17 23:25 Heat Therapy [OM.PC] PRN 02/19/17 07:04 Ready for Discharge [RC] PER UNIT ROUTINE - Assessment Assessment:: 26 y/o G2 now P2002 PPD#2 from at 39 4/7 wks - Plan Plan:: * Routine cares * Encourage breast feeding * Discharge home today Cece Amin MD
== END 2017-02-19 09:45 | disposition home or self-care (01) | DRG 775 ==
LOC: JD.OBCHECK 16:07 → JD.OB 16:14 → JD.OBCHECK 16:15 → OBSVTOIN 22:22 → JD.OB 22:22
PROVIDERS: ADMIT Obstetrics & Gynecology; ATTEND Obstetrics & Gynecology
PROC: 10E0XZZ Delivery of Products of Conception, External Approach (ICD-10-PCS; principal; 2017-02-17)
DX: O70.1 Second degree perineal laceration during delivery (principal); Z3A.39 39 weeks gestation of pregnancy; Z37.0 Single live birth; Z98.891 History of uterine scar from previous surgery
CPT/HCPCS: 01967; 36415; 85027; 86850; 86900; 86901; A9270-GY; J2405; J2590; J3010; J7120

== ENCOUNTER 2023-06-10 06:40 | Day surgery (SDC) | payer BC, OTHER ==
[~2023-06-10 06:40] MED LIST: Sodium Chloride 0.9% 10 ML Syringe FLUSH PRN; Sodium Chloride 0.9% 10 ML Syringe FLUSH SCH
[2023-06-10] MEDS: Lactated Ringers 1,000 ML IV SCH ×2 (06:55→10:00)
[2023-06-10 07:06] LABS: BASOPHILS PERCENT AUTO 0.6 % (0.0-1.0); EOSINOPHILS ABSOLUTE AUTO 0.2 K/mm3 (0.0-0.4); EOSINOPHILS PERCENT AUTO 2.6 % (0.0-6.0); HEMATOCRIT 37.9 % (37.0-47.0); HEMOGLOBIN 12.2 gm/dl (12.0-16.0); IMMATURE GRAN ABSOLUTE AUTO 0.01 K/mm3 (0.00-0.05); IMMATURE GRAN PERCENT AUTO 0.2 % (0.0-0.4); LYMPHOCYTES ABSOLUTE AUTO 2.7 K/mm3 (1.0-4.8); LYMPHOCYTES PERCENT AUTO 42.5 % (24.0-44.0); MEAN CORPUSCULAR HEMOGLOBIN 26.2 pg (28.0-32.0); MEAN CORPUSCULAR HGB CONC 32.2 g/dl (32.0-36.0); MEAN CORPUSCULAR VOLUME 81.5 fl (83.0-99.0); MEAN PLATELET VOLUME 9.6 fl (9.4-12.3); MONOCYTES ABSOLUTE AUTO 0.5 K/mm3 (0.0-0.8); MONOCYTES PERCENT AUTO 7.9 % (0.0-8.0); NEUTROPHILS ABSOLUTE AUTO 2.9 K/mm3 (1.8-7.7); NEUTROPHILS PERCENT AUTO 46.2 % (41.0-71.0); PLATELET COUNT,PLT 323 K/mm3 (150-400); RED BLOOD CELL COUNT 4.65 M/mm3 (4.10-5.30); WHITE BLOOD CELL COUNT,WBC 6.24 K/mm3 (3.9-11.3)
[2023-06-10] MEDS ORDERED: Rocuronium 50 MG/5 ML Vial ONE (07:09)
[2023-06-10] MEDS ORDERED: Lidocaine 1% 5 ML VIAL ONE (07:09)
[2023-06-10] MEDS ORDERED: Ondansetron 4 MG/2 ML SDV ONE ×2 (07:09→08:08)
[2023-06-10] MEDS ORDERED: Ketamine 200 MG/20 ML MDV ONE (07:10)
[2023-06-10] MEDS ORDERED: fentaNYL 250 MCG/5 ML SDV ONE (07:10)
[2023-06-10] MEDS ORDERED: Midazolam 1 MG/ML 2 ML SDV ONE (07:10)
[2023-06-10] MEDS ORDERED: Propofol 200 MG/20 ML SDV ONE (07:10)
[2023-06-10 07:25] LABS: ANION GAP 12.4 (5-15); BLOOD UREA NITROGEN,BUN 9 mg/dL (7-18); BUN/CREATININE RATIO 11.3 (14-18); CALCIUM 8.5 mg/dL (8.5-10.1); CARBON DIOXIDE,CO2 26 mEq/L (21-32); CHLORIDE,CL 101 mEq/L (98-107); CREATININE 0.8 mg/dL (0.55-1.02); ESTIMATED GFR 98 mL/min (>60); GLUCOSE RANDOM 93 mg/dL (70-99); POTASSIUM,K 3.4 mEq/L (3.5-5.1); SODIUM,NA 136 mEq/L (136-145)
[2023-06-10] MEDS ORDERED: Bupivacaine 0.5% 30 ML SDV ONE (07:31)
[2023-06-10] MEDS ORDERED: EPINEPHrine 1 MG/ML SDV ONE (07:31)
[2023-06-10] MEDS ORDERED: Bupivacaine 0.25% 10 ML SDV ONE (07:31)
[2023-06-10] MEDS ORDERED: Dexamethasone 4 MG/ML 5 ML MDV ONE (08:08)
[2023-06-10] MEDS ORDERED: ceFAZolin 2 GM Vial ONE (08:09)
[2023-06-10] MEDS ORDERED: HYDROmorphone 0.5 MG/0.5 ML Syringe IVPUSH PRN (08:23)
[2023-06-10] MEDS ORDERED: fentaNYL 100 MCG/2 ML SDV IVPUSH PRN (08:23)
[2023-06-10] MEDS ORDERED: Ondansetron 4 MG/2 ML SDV IVPUSH PRN (08:23)
[2023-06-10] MEDS ORDERED: Lactated Ringers 1,000 ML ONE (08:27)
[2023-06-10] MEDS ORDERED: Ketorolac 30 MG/ML SDV ONE (08:49)
[2023-06-10] MEDS ORDERED: Neostigmine Methylsulfate 10 MG/10 ML MDV ONE (09:10)
[2023-06-10] MEDS ORDERED: HYDROmorphone 0.5 MG/0.5 ML Syringe ONE (09:38)
[2023-06-10] MEDS ORDERED: Acetaminophen/oxyCODONE 325-5 MG Tab PO PRN (10:41)
[2023-06-10 13:55] VITALS: BP 125/87; PULSE 70
== END 2023-06-10 13:34 | disposition home or self-care (01) ==
LOC: JD.SDS 06:40
PROVIDERS: ATTEND Obstetrics & Gynecology
DX: N80.03 Adenomyosis of the uterus (principal); N83.8 Other noninflammatory disorders of ovary, fallopian tube and broad ligament; F33.41 Major depressive disorder, recurrent, in partial remission; G43.709 Chronic migraine without aura, not intractable, without status migrainosus; E66.9 Obesity, unspecified; Z88.0 Allergy status to penicillin; Z79.899 Other long term (current) drug therapy; Z68.30 Body mass index [BMI] 30.0-30.9, adult
CPT/HCPCS: 36415; 58552; 80048; 81025; 85025; 86850; 86900; 86901; A9270; J0171; J0690; J1100; J1170; J1885; J2250; J2405; J2704; J2710; J3010; J3490; J7120; 00944